=== PATIENT | female | born 1955 | race Caucasian/White ===

== ENCOUNTER 2017-01-05 08:00 | Inpatient (IN) | payer OTHER ==
[2017-01-05] MEDS ORDERED: GABAPENTIN 300 MG CAPSULE (FP) ONE (09:38)
[2017-01-05] MEDS ORDERED: CELECOXIB 200 MG CAPSULE ONE (09:38)
[2017-01-05] MEDS: GABAPENTIN 300 MG CAPSULE (FP) PO ONE (09:40)
[2017-01-05] MEDS: CELECOXIB 200 MG CAPSULE PO ONE (09:40)
[2017-01-05] MEDS ORDERED: MIDAZOLAM HCL 2 MG/2 ML SINGLE DOSE VIAL ONE (09:43)
[2017-01-05] MEDS ORDERED: DEXAMETHASONE SOD PHOSPHATE/PF 10 MG/ML SDV ONE (09:43)
[2017-01-05] MEDS ORDERED: SODIUM CHLORIDE 0.9% P/F 10 ML VIAL IJ ONE (09:43)
[2017-01-05] MEDS ORDERED: ROPIVACAINE HCL 0.5% 30ML VIAL ONE (09:43)
[2017-01-05 09:53] VITALS: BMI 36.7
[2017-01-05] MEDS ORDERED: oxyCODONE HCL 10 MG SUSTAINED ACTING TABLET PO ONE (10:00)
[2017-01-05] MEDS ORDERED: CEFAZOLIN 2 GM in DEXTROSE 5%-WATER - 50 ML IVPB ONE (10:30)
[2017-01-05] MEDS ORDERED: TRANEXAMIC ACID 1000 MG/10 ML VIAL ONE ×3 (10:45→14:37)
--- NOTE | 2017-01-05 10:45 | HP ---
History & Physical Update - History History: No Change - Physical Physical: No Change - Assessment Assessment: No Change - Plan Plan: No Change
[2017-01-05] MEDS ORDERED: PROPOFOL 20 ML ONE ×3 (11:12→11:20)
[2017-01-05] MEDS ORDERED: ceFAZolin SODIUM 1 GM VIAL ONE ×2 (11:12)
[2017-01-05] MEDS ORDERED: ONDANSETRON 4 MG/2 ML VIAL IVPUSH PRN (14:31)
[2017-01-05] MEDS ORDERED: MAGNESIUM HYDROX 2400MG/30ML ORAL SUSPENSION 30 ML CUP PO PRN (14:31)
[2017-01-05] MEDS ORDERED: MAG HYDROX/AL HYDROX/SIMETH 30 ML UNIT-DOSE CUP PO PRN (14:31)
[2017-01-05] MEDS: TRANEXAMIC ACID 1000 MG/10 ML VIAL IVPUSH ONE (14:43)
[2017-01-05] MEDS ORDERED: LACTATED RINGERS SOLUTION 1,000 ML IV SCH (14:45)
--- NOTE | 2017-01-05 15:04 | OP ---
<Lorene Orozco - Last Filed: 01/05/17 14:58> Operative Note - Note: Operative Date: 01/05/17 Pre-Operative Diagnosis: right knee osteoarthritis Operation: Right total knee arthroplasty Implants: Sinha and Nephew size 6 femur. Sinha and Nephew size 4 tibial plate. Sinha and Nephew size 29mm patella. Sinha and Nephew 9mm insert Post-Operative Diagnosis: Same as Pre-op Surgeon: Du Patel Hopper Attendant: Lorene Orozco Anesthesiologist/UPPER LINING CEMENTER: Izaiah Ansari Anesthesia: Spinal (with block) Specimens Removed: Right distal femur, proximal tibia and partial patella Estimated Blood Loss (mls): 150 Fluid Volume Replaced (mls): 1,400 Operative Report Dictated: Yes <Du Patel - Last Filed: 01/05/17 16:37> Operative Note - Note: Pre-Operative Diagnosis: Post-traumatic osteoarthritis right knee Implants: Sinha and Nephew Legion 6 femur, 5 tibia, 29 patella and 9mm poly
--- NOTE | 2017-01-05 15:07 | SURG ---
Surgery Porcelain Slusher Note Porcelain Slusher: Lorene Orozco PA-C Date of Service: 01/05/17 Diagnosis: Right knee osteoarthritis Procedure: Right total knee arthroplasty I was present for the entirety of the operative procedure. For further detail, please refer to operative report. Visit type - Case Type Case Type: Scheduled Admission - Emergency Emergency Visit: No - New patient This patient is new to me today: Yes Date on this admission: 01/05/17
[2017-01-05] MEDS: ACETAMINOPHEN 325 MG TABLET (FP) PO SCH ×2 (15:17→21:35)
[2017-01-05] MEDS: oxyCODONE HCL 5 MG TABLET PO PRN ×3 (16:31→21:34)
[2017-01-05] MEDS: CEFAZOLIN 2 GM/D5W 2 GM/50 ML ML IVPB SCH (18:31)
[2017-01-05] MEDS: traZODone HCL 50 MG TABLET (FP) PO SCH (21:33)
[2017-01-05] MEDS: GABAPENTIN 300 MG CAPSULE (FP) PO SCH (21:33)
[2017-01-05] MEDS: SENNOSIDES/DOCUSATE COMBO (SENNA PLUS) TABLET (UD) PO SCH (21:34)
[2017-01-05] MEDS: oxyCODONE HCL 10 MG SUSTAINED ACTING TABLET PO SCH (21:34)
[2017-01-05] MEDS ORDERED: PATIENT'S OWN MEDICATION (NON-FORMULARY) (Mirabegron [Myrbetriq] 25 MG) PO SCH (22:00)
[2017-01-06] MEDS: oxyCODONE HCL 5 MG TABLET PO PRN ×4 (02:03→17:45)
[2017-01-06] MEDS: ACETAMINOPHEN 325 MG TABLET (FP) PO SCH ×5 (02:04→21:09)
[2017-01-06] MEDS: CEFAZOLIN 2 GM/D5W 2 GM/50 ML ML IVPB SCH (02:04)
[2017-01-06] MEDS: ASPIRIN 325 MG TABLET PO SCH ×2 (08:13→19:52)
[2017-01-06 08:33] LABS: ANION GAP 6 (8-16); CALCIUM 8.7 mg/dl (8.4-10.2); CO2 26 mmol/L (22-28); CREATININE 0.6 mg/dl (0.6-1.3); GLUCOSE,RANDOM 99 mg/dl (74-106)
--- NOTE | 2017-01-06 08:35 | OP ---
DATE OF OPERATION: 01/05/2017 PREOPERATIVE DIAGNOSIS: Posttraumatic arthritis, right knee. POSTOPERATIVE DIAGNOSIS: Posttraumatic arthritis, right knee. PROCEDURE: Right total knee arthroplasty using Sinha & Nephew Legion system. SURGEON: Du Patel MD BUTCHER ALL ROUND: KIYA Jones FINDINGS AND PROCEDURE: The patient was seen in the preoperative holding area where the right knee was marked. The patient was administered an adductor canal block and selective tibial nerve block. She was then brought to the operating room and placed on the OR table in the seated position. After a spinal anesthetic and intravenous sedation were administered, a Santos catheter was placed. A pneumatic tourniquet was placed about the upper right thigh and set at 300 mmHg. A sand bag was taped to the bed, and a bump was placed beneath the right hip. Two grams of Ancef were given, and a gram of tranexamic acid was given. The right knee was then prepped and free draped in sterile fashion. A timeout was performed, identifying the patient and the correct surgical site. The right leg was exsanguinated with an Esmarch bandage, the knee was flexed, and the tourniquet inflated. A 15-cm midline incision was made centered over the patella. The incision was carried by electrocautery through the subcutaneous tissues down to the knee extensor mechanism where thick medial and lateral soft tissue flaps were raised. A quadriceps-splitting medial parapatellar arthrotomy incision was performed. We next performed a complete synovectomy. The medial collateral ligament was subperiosteally elevated from the proximal tibia. The patella was everted, and the knee was hyperflexed. The ACL insertion was released. The remnants of the medial and lateral meniscus were excised. Tibial retractors were placed, and the proximal tibia was subluxated anteriorly. The tibial cutting jig from the Sinha & Nephew Legion system was pinned to the proximal tibia, aligning the jig for 9-mm cut from the lateral compartment and with 5 degrees of posterior slope. The cut was made with the oscillating saw, and the jig was removed. A sdv pilot/navigator/dds operator hole was placed in the intercondylar notch. A T-handle jason was passed through the distal femoral cutting block with a 6-degree valgus bushing. The jason was inserted up the femoral shaft , and the block was pinned into place. The block was adjusted for +4 mm of bone to be excised secondary to the preoperative flexion contracture. The cut was made with the oscillating saw, and the jig was removed. The distal femoral sizing jig was placed over the cut surface of the femur. The jig was adjusted for 3 degrees of external rotation, and a size 6 femoral component was measured with the stylus. The 2 drill holes were made, and the jig was removed. The distal femoral cutting block was pinned to the distal femur. The michael wing was used to check for anterior notching. Tibial retractors were placed, and we sequentially made the anterior cut, posterior cuts, posterior chamfer cuts, and anterior chamfer cut. The jig was removed. The resected fragments of bone were removed. The posterior compartment was checked for loose bodies and osteophytes. The remnants of the cruciate ligament were excised from the intercondylar notch, and the posterior capsule was centrally released. We then turned our attention back to the tibia. The tibia was sized for a number 5 tibial baseplate. The baseplate was aligned to the medial third of the tibial tubercle and pinned into place. The large drill and punch were passed through the baseplate. We then impacted a size 6 femoral component onto the distal femur with slight lateralization. We did a trial reduction with a 9-mm insert which gave excellent collateral ligament tension through a full range of motion. We then sized the patella at 23 mm. The patella cutting jig was used to resect 9 mm of bone. The articular surface of the patella was sized for a 29-mm button. The clamp was oriented medially on the patella. The 3 lug holes were drilled. A 29-mm trial patellar button was inserted, and excellent patellofemoral tracking was noted. The holes for the femoral component lugs were then punched, and all trial components were removed. The knee was copiously irrigated with 3 L of pulse lavage. A bone plug was inserted in the distal femoral hole. Two packs of Palacos cement were mixed on the back table. A size 5 Legion tibia was cemented onto the cut surface of the tibia. An Oxinium-coated size 6 femoral component was then cemented onto the cut surface of the femur, and excess cement was removed. The 9-mm trial spacer was inserted into the tibial tray, and the knee was extended. The 29-mm polyethylene button was cemented onto the patella. The knee was again flexed, and extruded cement from the prosthetic bone interfaces was removed. Once the cement was hardened, the tourniquet was released at 94 minutes. Bleeding points were coagulated with the Aquamantys. A 9-mm dished polyethylene insert was snapped into the tibial tray, and the knee was reduced. Excellent patellar tracking was again noted with excellent collateral ligament tension through a full range of motion. The wound was again irrigated with pulse lavage. The quadriceps arthrotomy was repaired using No. 1 Vicryl figure- of-8 interrupted sutures. The subcutaneous layer was closed using 0 and 2-0 V-Loc running sutures, and the skin was closed using skyler. An Aquacel dressing was applied. Intraoperative x-rays were taken to confirm no foreign bodies in the knee. A knee immobilizer was applied. The patient was taken to the recovery room in stable condition. TOTAL BLOOD LOSS: 150 mL PATHOLOGY SPECIMEN: Bone and soft tissue, right knee. Kory [id number] MTDShantelle
[2017-01-06 08:36] LABS: MCH 32.2 pg (25.7-33.7); MCHC 34.3 g/dl (32.0-36.0); MEAN PLT VOLUME 13.6 fl (7.5-11.1); RDW 12.8 % (11.6-15.6); WHITE BLOOD COUNT 13.7 K/mm3 (4.0-10.8)
[2017-01-06 08:46] LABS: PLATELET COUNT 179 K/MM3 (134-434)
[2017-01-06] MEDS: SENNOSIDES/DOCUSATE COMBO (SENNA PLUS) TABLET (UD) PO SCH ×2 (09:19→21:10)
[2017-01-06] MEDS: PANTOPRAZOLE 40 MG TABLET (FP) PO SCH (09:19)
[2017-01-06] MEDS: FOLIC ACID 1 MG TABLET (FP) PO SCH (09:19)
[2017-01-06] MEDS: MULTIVITAMINS (DAILY MVI) TABLET (FP) PO SCH (09:19)
[2017-01-06] MEDS: GABAPENTIN 300 MG CAPSULE (FP) PO SCH ×2 (09:20→21:10)
[2017-01-06] MEDS: SERTRALINE HCL 50 MG TABLET (FP) PO SCH (09:20)
[2017-01-06] MEDS: oxyCODONE HCL 10 MG SUSTAINED ACTING TABLET PO SCH ×2 (09:20→21:10)
[2017-01-06] MEDS ORDERED: PATIENT'S OWN MEDICATION (NON-FORMULARY) (Omeprazole 20 MG) PO SCH (10:00)
[2017-01-06] MEDS ORDERED: MULTIVITAMINS (DAILY MVI) TABLET (FP) PO SCH (10:00)
[2017-01-06] MEDS: TRANEXAMIC ACID 1000 MG/10 ML VIAL IVPUSH ONE (10:35)
[2017-01-06] MEDS: CELECOXIB 200 MG CAPSULE PO ONE (10:37)
[2017-01-06] MEDS: GABAPENTIN 300 MG CAPSULE (FP) PO ONE (10:37)
--- NOTE | 2017-01-06 14:20 | PN ---
Progress Note (short form) - Note Progress Note: 61F POD1 s/p right TKR under spinal anesthetic with peripheral nerve blocks for post operative pain control doing well. Patient states that pain is well controlled and does not report any anesthetic complications. Sensory and motor function is intact in bilateral lower extremities.
--- NOTE | 2017-01-06 14:34 | CONSULT ---
Consultation: REQUESTING PROVIDER: Dr Yao CONSULT REQUEST: We have been asked to medically evaluate this patient for medical management. HISTORY OF PRESENT ILLNESS: Patient is a 61 y/o female with a past medical history of depression and anxiety, osteoarthritis. Patient is s/p right TKR, Dr Patel, pod #1. REVIEW OF SYSTEMS: CONSTITUTIONAL: Absent: fever, chills, diaphoresis, generalized weakness, malaise, loss of appetite, weight change HEENT: Absent: rhinorrhea, nasal congestion, throat pain, throat swelling, difficulty swallowing, mouth swelling, ear pain, eye pain, visual changes CARDIOVASCULAR: Absent: chest pain, syncope, palpitations, irregular heart rate, lightheadedness , peripheral edema RESPIRATORY: Absent: cough, shortness of breath, dyspnea with exertion, orthopnea, wheezing, stridor, hemoptysis GASTROINTESTINAL: Absent: abdominal pain, abdominal distension, nausea, vomiting, diarrhea, constipation, melena, hematochezia GENITOURINARY: Absent: dysuria, frequency, urgency, hesitancy, hematuria, flank pain, genital pain MUSCULOSKELETAL: present:right knee pain Absent: myalgia, arthralgia, joint swelling, back pain, neck pain SKIN: Absent: rash, itching, pallor HEMATOLOGIC/IMMUNOLOGIC: Absent: easy bleeding, easy bruising, lymphadenopathy, frequent infections ENDOCRINE: Absent: unexplained weight gain, unexplained weight loss, heat intolerance, cold intolerance NEUROLOGIC: Absent: headache, focal weakness or paresthesias, dizziness, unsteady gait, seizure, mental status changes, bladder or bowel incontinence PSYCHIATRIC: Absent: anxiety, depression, suicidal or homicidal ideation, hallucinations. PHYSICAL EXAMINATION Vital Signs - 24 hr 01/05/17 01/05/17 01/05/17 14:30 14:35 14:40 Temperature Pulse Rate 52 L 49 L 52 L Respiratory 12 13 11 L Rate Blood Pressure 134/69 124/66 128/73 O2 Sat by Pulse 100 100 100 Oximetry (%) 01/05/17 01/05/17 01/05/17 14:55 15:10 15:25 Temperature 97.3 F L Pulse Rate 55 L 54 L 54 L Respiratory 12 11 L 16 Rate Blood Pressure 143/70 132/67 142/52 O2 Sat by Pulse 100 100 Oximetry (%) 01/05/17 01/05/17 01/05/17 15:57 16:06 21:00 Temperature 97.3 F L 97.3 F L Pulse Rate 56 L 56 L Respiratory 16 16 16 Rate Blood Pressure 135/62 135/62 O2 Sat by Pulse 100 100 100 Oximetry (%) 01/05/17 01/06/17 01/06/17 22:00 05:50 14:18 Temperature 98.3 F 98.1 F 99.4 F Pulse Rate 64 68 75 Respiratory 16 18 18 Rate Blood Pressure 115/57 108/51 119/44 O2 Sat by Pulse 95 96 94 L Oximetry (%) GENERAL: Awake, alert, and fully oriented, in no acute distress. HEAD: Normal with no signs of trauma. EYES: Pupils equal, round and reactive to light, extraocular movements intact, sclera anicteric, conjunctiva clear. No lid lag. EARS, NOSE, THROAT: Ears normal, nares patent, oropharynx clear without exudates. Moist mucous membranes. NECK: Normal range of motion, supple without lymphadenopathy, JVD, or masses. LUNGS: Breath sounds equal, clear to auscultation bilaterally. No wheezes, and no crackles. No accessory muscle use. HEART: Regular rate and rhythm, normal S1 and S2 without murmur, rub or gallop. ABDOMEN: Soft, nontender, not distended, normoactive bowel sounds, no guarding, no rebound, no masses. No hepatomegaly or splenomegaly. MUSCULOSKELETAL: Normal range of motion at all joints. No bony deformities or tenderness. No CVA tenderness. UPPER EXTREMITIES: 2+ pulses, warm, well-perfused. No cyanosis. No clubbing. Cap refill <2 seconds. No peripheral edema. LOWER EXTREMITIES: 2+ pulses, warm, well-perfused. No calf tenderness. No peripheral edema. RIGHT LOWER EXTREMITY: aguacel dressing intact, cdi, less than 3 second capillary refill, +3 pedal pulse NEUROLOGICAL: Cranial nerves II-XII intact. Normal speech. Normal gait. PSYCHIATRIC: Cooperative. Good eye contact. Appropriate mood and affect. SKIN: Warm, dry, normal turgor, no rashes or lesions noted. Laboratory Results - last 24 hr 01/06/17 01/06/17 07:00 07:00 WBC 13.7 H RBC 3.89 Hgb 12.5 Hct 36.6 MCV 94.0 MCH 32.2 MCHC 34.3 RDW 12.8 Plt Count 179 MPV 13.6 H Sodium 136 Potassium 4.1 Chloride 104 Carbon Dioxide 26 Anion Gap 6 L BUN 13 Creatinine 0.6 Random Glucose 99 Calcium 8.7 Active Medications Generic Name Dose Route Start Last Admin Trade Name Stephenq PRN Reason Stop Dose Admin Acetaminophen 650 mg 01/05/17 15:00 01/06/17 10:35 Tylenol - PO 01/08/17 14:59 Not Given Q6H VINCE Al Hydroxide/Mg Hydroxide 30 ml 01/05/17 14:31 Mylanta Oral Suspension - PO Q4H PRN DYSPEPSIA Aspirin 325 mg 01/06/17 08:00 01/06/17 08:13 Asa - PO 325 mg Q12H VINCE Administration Folic Acid 1 mg 01/06/17 10:00 01/06/17 09:19 Folic Acid - PO 1 mg DAILY VINCE Administration Gabapentin 300 mg 01/05/17 22:00 01/06/17 09:20 Neurontin - PO 01/08/17 21:59 300 mg BID VINCE Administration Magnesium Hydroxide 30 ml 01/05/17 14:31 Milk Of Magnesia - PO PRN PRN CONSTIPATION Multivitamins/Minerals/Vitamin C 1 tab 01/06/17 10:00 01/06/17 09:19 Tab-A-Vit - PO 1 tab DAILY VINCE Administration Non-Formulary Medication 25 mg 01/05/17 22:00 Mirabegron [Myrbetriq] PO HS VINCE Ondansetron HCl 4 mg 01/05/17 14:31 Zofran Injection IVPUSH Q6H PRN NAUSEA Oxycodone HCl 5 mg 01/05/17 14:58 01/05/17 21:34 Roxicodone - PO 5 mg Q3H PRN Administration PAIN LEVEL 1-5 Oxycodone HCl 10 mg 01/05/17 14:58 01/06/17 13:33 Roxicodone - PO 10 mg Q3H PRN Administration PAIN LEVEL 6-10 Oxycodone HCl 10 mg 01/05/17 22:00 01/06/17 09:20 Oxycontin - PO 01/08/17 14:59 10 mg BID VINCE Administration Pantoprazole Sodium 40 mg 01/06/17 10:00 01/06/17 09:19 Protonix - PO 40 mg DAILY VINCE Administration Senna/Docusate Sodium 1 tablet 01/05/17 22:00 01/06/17 09:19 Pericolace - PO 1 tablet BID VINCE Administration Sertraline HCl 100 mg 01/06/17 10:00 01/06/17 09:20 Zoloft - PO 100 mg DAILY VINCE Administration Trazodone HCl 50 mg 01/05/17 22:00 01/05/17 21:33 Desyrel - PO 50 mg HS VINCE Administration ASSESSMENT/PLAN: 1) s/p right TKR, pod #1 - pt as per ortho - continue prn oxycodone - incentive spirometer 2) psych anxiety/depression - continue home medications f/e/n - regular diet ppx - protonix - scd - pt - oob Dispo: We will continue to follow the patient. Thank you for this consultative opportunity. Visit type - Emergency Visit Emergency Visit: No - New Patient This patient is new to me today: Yes Date on this admission: 01/06/17 - Critical Care Critical Care patient: No
[2017-01-06] MEDS: traZODone HCL 50 MG TABLET (FP) PO SCH (21:10)
--- NOTE | 2017-01-06 22:04 | PN ---
Progress Note (short form) - Note Progress Note: POD #1 Patient resting comfortably in bed with family at bedside. Pain currently controlled with Percocet. Did well with PT. Hgb-12.5 Wbc- 13.7 SMA-7- wnl. Plan: Repeat CBC PT tomorrow. F/U with SW regarding discharge planning c/w ASA 325 BID
[2017-01-07] MEDS: ACETAMINOPHEN 325 MG TABLET (FP) PO SCH ×3 (02:42→14:35)
[2017-01-07] MEDS: oxyCODONE HCL 5 MG TABLET PO PRN ×2 (05:10→14:36)
[2017-01-07] MEDS: ASPIRIN 325 MG TABLET PO SCH (08:15)
[2017-01-07 08:39] LABS: MCH 31.8 pg (25.7-33.7); MCHC 34.3 g/dl (32.0-36.0); MEAN CELL VOLUME 92.7 fl (80-96); PLATELET COUNT 135 K/MM3 (134-434); WHITE BLOOD COUNT 12.4 K/mm3 (4.0-10.8)
[2017-01-07] MEDS: GABAPENTIN 300 MG CAPSULE (FP) PO SCH (09:14)
[2017-01-07] MEDS: oxyCODONE HCL 10 MG SUSTAINED ACTING TABLET PO SCH (09:14)
[2017-01-07] MEDS: MULTIVITAMINS (DAILY MVI) TABLET (FP) PO SCH (09:14)
[2017-01-07] MEDS: PANTOPRAZOLE 40 MG TABLET (FP) PO SCH (09:14)
[2017-01-07] MEDS: FOLIC ACID 1 MG TABLET (FP) PO SCH (09:14)
[2017-01-07] MEDS: SENNOSIDES/DOCUSATE COMBO (SENNA PLUS) TABLET (UD) PO SCH (09:14)
[2017-01-07] MEDS: SERTRALINE HCL 50 MG TABLET (FP) PO SCH (09:14)
[2017-01-07 11:05] VITALS: TEMP 98.5
[2017-01-07 15:08] VITALS: BP 128/59; PULSE 73
--- NOTE | 2017-01-09 09:59 | PATH ---
Surgical Pathology Report Patient Name: ALAYNA DELGADO Med. Rec. #: [id number] /Age/Gender: 1955 (Age: 61) / F Account: [id number] Location: [facility] Taken: 01/05/2017 Received: 01/05/2017 Reported: 01/09/2017 Physicians: Du Patel M.D. Specimen(s) Received RIGHT KNEE BONE AND TISSUE Clinical History Preoperative diagnosis: Osteoarthritis right knee Postoperative diagnosis: Same Final Diagnosis BONE AND SOFT TISSUE, RIGHT KNEE, REPLACEMENT: DEGENERATIVE JOINT DISEASE. Electronically Signed Jamin Lara M.D. Gross Description Received in formalin labeled "right knee bone and tissue," is a 13.0 x 9.5 x 2.0 cm aggregate of multiple alas, irregular portions of bone and soft tissue, consistent with knee bones. The articular surfaces are alas-yellow and focally granular. The underlying trabecular bone is yellow and hard. Last Remodeler Repairer sections are submitted in one cassette. 01/06/2017 [facility]01/06/2017
== END 2017-01-07 15:20 | disposition home health service (06) | DRG 302 ==
LOC: FM/S 09:03
PROVIDERS: ADMIT Orthopaedic Surgery Sports Medicine; ATTEND Orthopaedic Surgery Sports Medicine
PROC: 0SRC0JZ Replacement of Right Knee Joint with Synthetic Substitute, Open Approach (ICD-10-PCS; principal; 2017-01-05 11:41)
DX: M17.31 Unilateral post-traumatic osteoarthritis, right knee (principal); F41.8 Other specified anxiety disorders; E66.8 Other obesity; Z68.36 Body mass index [BMI] 36.0-36.9, adult; G47.39 Other sleep apnea
CPT/HCPCS: 36415; 73560-TC-RT; 80048; 85027; 88304-TC; 88311-TC; 94010; 94760; 97116-GP; 97162-GP

== ENCOUNTER 2017-01-11 14:47 | Emergency (ER) | payer OTHER ==
--- NOTE | 2017-01-11 14:49 | PDOC ---
History of Present Illness - History of Present Illness Initial Comments: 01/11/17 14:56 The patient is a 61 year old female, with a significant past medical history of bilateral TKR, who presents to the emergency department with progressive onset of right knee swelling and pain radiating from her right knee to her posterior calf for about 2 days s/p right TKR on 01/05/17. The patient states she went to sleep on Thursday night, pain free, however, reports her knee became progressively swollen overnight. The patient reportedly had a physical therapy session the following day, and states she was advised by her physical therapist to ice her right knee and rest. The patient reports icing her knee intermittently, however, continues to complain of swelling and pain to her right knee. She denies pleuritic chest pain. She does endorse having a nonproductive cough for about a week. Secondary to her symptoms, the patient states her mother this morning. She denies chest pain, shortness of breath, headache and dizziness. She denies fever, chills, nausea, vomit, diarrhea and constipation. She denies dysuria, frequency, urgency and hematuria. Allergies: sulfa Past surgical history: right TKR (01/05/17), left TKR Social history: Denies tobacco use <Lexus Gilliland - Last Filed: 01/11/17 16:40> <Jered Sales - Last Filed: 01/11/17 16:50> - General Chief Complaint: Pain Stated Complaint: RIGHT LEG SWELLING. S/P TKR Time Seen by Provider: 01/11/17 14:48 Past History <Lexus Gilliland - Last Filed: 01/11/17 16:40> - Past Medical History Anemia: No Asthma: No Cancer: No Cardiac Disorders: No (PT C/O PALPITATIONS STARTED ABOUT 1 1/2 YRS AGO-ANXIETY-- CARDIAC WORKUP OK) CVA: No COPD: No CHF: No Dementia: No Diabetes: No GI Disorders: Yes (GERD;) Disorders: Yes (URGENCY/FREQUENCY) HTN: No Hypercholesterolemia: No Liver Disease: No Seizures: No Thyroid Disease: No - Surgical History Abdominal Surgery: No Appendectomy: No Cardiac Surgery: No Cholecystectomy: No Lung Surgery: No Neurologic Surgery: No Orthopedic Surgery: Yes (2015 RIGHT KNEE ARTHROSCOPY;2013 LEFT KNEE ARTHROSCOPY) - Suicide/Smoking/Psychosocial Hx Smoking History: Former smoker Have you smoked in the past 12 months: No If you are a former smoker, when did you quit?: 2003 Hx Alcohol Use: No Drug/Substance Use Hx: No Substance Use Type: None Hx Substance Use Treatment: No <SteveJered nichols - Last Filed: 01/11/17 16:50> - Past Medical History Allergies/Adverse Reactions: Allergies Allergy/AdvReac Type Severity Reaction Status Date / Time Sulfa (Sulfonamide Allergy Severe Rash Verified 01/11/17 14:55 Antibiotics) Home Medications: Ambulatory Orders Ergocalciferol [Vitamin D2] 50,000 unit PO Q7D@1000 12/29/16 Folic Acid 1 mg PO DAILY 12/29/16 Mirabegron [Myrbetriq] 25 mg PO HS 12/29/16 Multivitamins [Tab-A-Vit -] 1 tab PO DAILY 12/29/16 Omeprazole 20 mg PO DAILY 12/29/16 Sertraline HCl [Zoloft] 100 mg PO DAILY 12/29/16 Trazodone HCl 50 mg PO HS 12/29/16 Aspirin Coated [Ecotrin -] 325 mg PO BID 01/11/17 Gabapentin [Neurontin] 300 mg PO TID 01/11/17 Oxycodone HCl/Acetaminophen [Oxycodone-Acetaminophen 10-325] 1 each PO Q6H PRN 01/11/17 Review of Systems - Review of Systems Able to Perform ROS?: Yes Comments:: Constitutional: No: Chills, Diaphoresis, Night sweats, Fever, Loss of Appetite, Malaise, Weakness, Weight Stable, Unintentional weight loss, Unexplained weight Loss, Other HEENTM: No: Eye Pain, Blurred Vision, Tearing, Recent change in vision, Double Vision, Cataracts, Ear Pain, Ocular Prothesis, Ear Discharge, Nose Pain, Nose Congestion, Tinnitus, Nose Bleeding, Hearing Loss, Throat Pain, Throat Swelling , Mouth Pain, Dental Problems, Difficulty Swallowing, Mouth Swelling, Other Respiratory: Yes: +Cough, See HPI. No: Orthopnea, Shortness of Breath, SOB with Exertion, SOB at Rest, Stridor, Wheezing, Productive cough, Hemoptysis, Other Cardiac (ROS): No: Chest Pain, Edema, Irregular Heart Rate, Lightheadedness, Palpitations, Syncope, Chest Tightness, Other ABD/GI: No: Abdominal Distended, Abd. Pain w/ defecation, Blood Streaked Bowels , Constipated, Diarrhea, Difficulty Swallowing, Nausea, Poor Appetite, Poor Fluid Intake, Rectal Bleeding, Vomiting, Indigestion, Abdominal cramping, Tarry Stools, Other Musculoskeletal: Yes: +Right knee swelling, pain to right knee and right calf. See HPI. No: Back Pain, Gout, Muscle Weakness, Neck Pain, Integumentary: No: Change in Hair/Nails, Dryness, Erythema, Flushing, Lesions, Lumps, Pallor, Pruritus, Rash, Sweating, Other Neurological: No: Headache, Numbness, Paresthesia, Pre-Existing Deficit, Seizure , Tingling, Tremors, Weakness, Unsteady Gait, Ataxia, Dizziness, Other All Other Systems: Reviewed and Negative <Lexus Gilliland - Last Filed: 01/11/17 16:40> *Physical Exam - Physical Exam Comments: 01/11/17 15:02 General Appearance: Yes: Appropriately Dressed, Nourished. No: Apparent Distress , Disheveled, Mild Distress, Moderate Distress, Severe Distress, Alcohol on Breath, HEENT: positive: EOMI, ELAINE, Normal ENT Inspection, Normal Voice, TMs Normal, Pharynx Normal. negative: Symmetrical, Pale Conjunctivae, Photophobia, Scleral Icterus (R), Scleral Icterus (L), Muffled/Hoarse voice, Pharyngeal Erythema, Tonsillar Exudate, Tonsillar Erythema, Nasal Congestion, Rhinorrhea, Sinus Tenderness, Orbits, Hearing Decreased, Hearing Grossly Normal, TM Bulging Neck: positive: Trachea midline, Normal Thyroid, Supple. negative: Tender, Rigid , Carotid bruit, Decreased range of motion, Stridor, Lymphadenopathy (R), Lymphadenopathy (L), Rigidity, Tender lateral, Tender midline, Thyromegaly, Other Respiratory/Chest: positive: Lungs Clear, Normal Breath Sounds. negative: Accessory Muscle Use, Chest Tender, Respiratory Distress, Labored Respiration, Rapid RR, Decreased Breath Sounds, Paradoxal Breathing, Crackles, Rales, Rhonchi , Stridor, Wheezing, Dullness, Hyperresonant, Plerual Rub, Other Cardiovascular: positive: Regular Rate, Regular Rhythm, S1, S2. negative: Edema , JVD, Murmur, Bradycardia, Tachycardia, Diastolic Murmur, Systolic Murmur, Gallop/S3, Gallop/S4, Irregularly Irregular, Irregular, Other Vascular Pulses: Femoral (R): 4+, Femoral (L): 4+, Carotid (R): 4+, Carotid (L) : 4+, Dorsalis-Pedis (R): 4+, Doralis-Pedis (L): 4+ Gastrointestinal/Abdominal: positive: Normal Bowel Sounds, Soft. Negative: Tender, Organomegaly, Pulsatile Mass, Increased Bowel Sounds, Decreased BS, Protuberent, Distended, Guarding, Rebound, Tenderness, Hernia, Mass, Lymphatic: negative: Adenopathy, Tenderness, Other Musculoskeletal: positive: Normal Inspection. negative: CVA Tenderness, CVA Tenderness(R), CVA Tenderness (L), Decreased Range of Motion, Muscle Spasm, Vertebral Tenderness, Other Extremity: positive: (+) right calf tenderness. Right knee surgical scar was uncovered and without evidence of erythema. [place] intact. no evidence of infection. No compartment syndrome. No increased warmth or swelling. No surrounding erythema. Normal Capillary Refill, Normal Inspection, negative: Tender, Pelvis Stable, Coldness, Cyanosis, Delayed Capillary Refill, Pedal Edema, Swelling, Erythema, Inflammation Integumentary: positive: (+) ecchymotic right inner thigh. Normal Color, Dry, Warm. 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 negative: Abnormal Cranial NS, Responsive, EOM Palsy, Facial Droop, Numbness, Sensory Deficit, Confused, <Lexus Gilliland - Last Filed: 01/11/17 16:40> ED Treatment Course - RADIOLOGY Radiograph Interpretation: EXAM#: TYPE/EXAM: RESULT: [id number] US/DUPLEX VASCUL US-1 LEG Status post right knee replacement. Right calf pain. Rule out DVT Right lower extremity Doppler venous ultrasound. Grayscale, pulsed Doppler and color Doppler interrogation of the right lower extremity deep venous system was performed. The right common femoral, proximal and mid superficial femoral vein appear unremarkable without evidence of thrombosis. There is suboptimal visualization of the distal superficial femoral and posterior tibial vein. However, some flow seen on the color Doppler images. Normal flow and compression of the popliteal vein. Normal flow in the greater saphenous and deep femoral vein Impression: Suboptimal visualization of the distal superficial femoral and popliteal vein significantly limiting their evaluation. However, there is suggestion of some flow seen in particular in the distal superficial femoral vein. There is no evidence of deep venous thromboses involving the right common femoral, proximal and mid superficial femoral and the popliteal vein. Reported By: Jeannie Hernández MD 01/11/17 1634 <Lexus Gilliland - Last Filed: 01/11/17 16:40> - ADDITIONAL ORDERS Additional order review: 01/11/17 16:49 Right leg shows no DVT Dr. Patel came in to see pt Will send patient home, pt is in agreement with plan <Jered Sales - Last Filed: 01/11/17 16:50> Medical Decision Making - Medical Decision Making 01/11/17 15:59 Dr. Patel, patient's orthopedic surgeon, called requesting a call back for updates of the ultrasound results. At this time the results are pending and will give a call back when the ultrasound is reported. Dr. Patel left his cell number ([phone]) 01/11/17 16:41 Dr. Patel at bedside. The ultrasound report was provided to and discussed with Dr. Patel at this time. <Lexus Gilliland - Last Filed: 01/11/17 16:40> *DC/Admit/Observation/Transfer - Attestations Scribe Attestion: 01/11/17 15:07 Documentation prepared by Lexus Gilliland, acting as coroner/medical examiner for Jered Sales MD <Lexus Gilliland - Last Filed: 01/11/17 16:40> - Discharge Dispostion Admit: No <Jered Sales - Last Filed: 01/11/17 16:50> Diagnosis at time of Disposition: Leg pain, right - Discharge Dispostion Disposition: HOME Condition at time of disposition: Good - Referrals Referrals: Du Patel MD [Primary Care Provider] - - Patient Instructions Printed Discharge Instructions: DI for Leg Pain Additional Instructions: Ice, Motrin, rest Continue current treatment Follow up with your Orthopedics If worsen return to ER - Post Discharge Activity
[2017-01-11 15:05] VITALS: BP 120/60; PULSE 72; TEMP 98.8; BMI 36.6
== END 2017-01-11 17:03 | disposition home or self-care (01) ==
LOC: FER 14:47
DX: M79.604 Pain in right leg (principal); K21.9 Gastro-esophageal reflux disease without esophagitis; F41.9 Anxiety disorder, unspecified; Z96.651 Presence of right artificial knee joint; Z96.652 Presence of left artificial knee joint
CPT/HCPCS: 93971-TC; 99283-25